=== PATIENT | male | born 1990 | race Caucasian/White ===

== ENCOUNTER 2019-03-24 18:19 | Observation (INO) | payer OTHER ==
[~2019-03-24] VITALS: Ht 180.3 cm; Wt 68.0 kg
[~2019-03-24 18:19] MED LIST: AMPDEX15CR; AZIT250 PO; BUPR150T2; CHLO5 PO; CLIN300 PO; HYDACE5325 PO; MIRT30; Norco 10-325 T1 EACH PO; PERM5TC TOP; RXANTBENOT AU; RXHYDACE PO; RXONDA4ODT MM; Sudogest30 MG PO; TRAZ50; Zofran Odt4 MG SL
[2019-03-24] MEDS ORDERED: CHLO5 (19:19)
[2019-03-24] MEDS ORDERED: HYDPAM25 (19:19)
[2019-03-24 19:27] LABS: BASOPHILS ABSOLUTE AUTO 0.04 K/mm3 (0.00-0.23); BASOPHILS PERCENT AUTO 0 % (0-2); EOSINOPHILS PERCENT AUTO 1 % (0-6); Hemoglobin 17.2 g/dL (13.5-17.5); IMMATURE GRAN ABSOLUTE AUTO 0.04 K/mm3 (0.00-0.10); IMMATURE GRAN PERCENT AUTO 0 % (0-1); LYMPHOCYTES ABSOLUTE AUTO 2.23 K/mm3 (0.84-5.20); LYMPHOCYTES PERCENT AUTO 19 % (21-46); MONOCYTES ABSOLUTE AUTO 0.97 K/mm3 (0.16-1.47); MONOCYTES PERCENT AUTO 8 % (4-13); Mean Corpuscular HGB 31.8 pg (26.0-34.0); Mean Corpuscular HGB Conc 34.4 g/dL (31.5-36.5); Mean Corpuscular Volume 92 fL (80-100); Mean Platelet Volume 10.7 fL (9.1-12.4); NEUTROPHILS ABSOLUTE AUTO 8.64 K/mm3 (1.96-9.15); NEUTROPHILS PERCENT AUTO 72 % (41-73); Platelet Count 224 K/mm3 (150-400); RDW Coefficient Variation 12.6 % (11.7-14.2); Red Blood Cell Count 5.41 M/mm3 (4.30-5.90); White Blood Cell Count 12.02 K/mm3 (4.00-11.30)
[2019-03-24 19:43] LABS: Alanine Aminotransfer (ALT/SGP 43 U/L (12-78); Albumin, Blood 4.4 g/dL (3.4-5.0); Albumin/Globulin Ratio 1.4 (0.8-1.8); Alk Phos 77 U/L (50-136); Anion Gap 7 mmol/L (6-16); Aspartate Aminotrans (AST/SGOT 27 U/L (12-37); Bilirubin, Total 0.6 mg/dL (0.1-1.0); Blood Urea Nitrogen 29 mg/dL (8-24); Bun/Creatinine Ratio 29.4 (12.0-20.0); CO2, Blood 23 mmol/L (21-32); Calcium, Blood 9.6 mg/dL (8.5-10.1); Chloride, Blood 110 mmol/L (98-108); Creatinine, Blood 0.99 mg/dL (0.60-1.20); Ethanol (Alcohol), Blood, Med <3 mg/dL; Globulin, Blood 3.1 g/dL (2.2-4.0); Glomerular Filtration Rate >60 (60-); Glucose, Blood 106 mg/dL (70-99); Salicylate 1.7 mg/dL (2.8-20.0); Sodium, Blood 140 mmol/L (136-145); Thyroxine (T4) 7.5 ug/dL (4.5-12.1); Total Protein, Blood 7.5 g/dL (6.4-8.2)
[2019-03-24 19:49] LABS: Acetaminophen, Random <2.0 ug/mL (10.0-30.0)
[2019-03-24 19:53] LABS: Source, Urine Clean Catch
[2019-03-24 19:55] LABS: Bilirubin, Urine Neg (Neg); Blood, Urine Neg (Neg); Glucose Qualitative, Urine Neg (Neg); Ketones, Urine 1+ (Neg); Leukocyte Esterase, Urine Neg (Neg); Nitrite, Urine Neg (Neg); Protein, Urine 2+ (Neg); Urobilinogen, Urine NORM (Normal)
[2019-03-24 19:56] LABS: Appearance, Urine Clear (Clear); Color, Urine Yellow (P-Yellow)
[2019-03-24 20:01] LABS: Bacteria Mod /hpf; Red Blood Cells, Urine 0-2 /hpf (0-2); Squamous Epithelial Cells Not Seen /hpf (Few); White Blood Cells, Urine 0-2 /hpf (0-5)
[2019-03-24 20:05] LABS: U Amphetamine Screen Not Detected; U Barbituate Screen Not Detected; U Benzodiazapine Screen DETECTED; U Buprenorphine Screen Not Detected; U Cannabinoids Screen DETECTED; U Cocaine Screen Not Detected; U Methadone Screen Not Detected; U Methamphetamine Screen Not Detected; U Opiates Screen Not Detected; U Oxycodone Screen Not Detected; U Phencyclidine Screen Not Detected; U Propoxyphene Screen Not Detected
== END 2019-03-25 10:45 | disposition home or self-care (01) ==
LOC: ER 18:19 → EOR 18:20
PROVIDERS: ADMIT Emergency Medicine
DX: F33.2 Major depressive disorder, recurrent severe without psychotic features (principal); F43.10 Post-traumatic stress disorder, unspecified; F41.0 Panic disorder [episodic paroxysmal anxiety]; F10.20 Alcohol dependence, uncomplicated; F17.200 Nicotine dependence, unspecified, uncomplicated; Z88.0 Allergy status to penicillin; Z88.5 Allergy status to narcotic agent
CPT/HCPCS: 36415; 80053; 81001; 84436; 84443; 85025; 87086; 99285; G0378; G0480; Q3014

== ENCOUNTER 2019-03-27 15:51 | Observation (INO) | payer OTHER ==
[~2019-03-27] VITALS: Ht 180.3 cm; Wt 68.0 kg
[~2019-03-27 15:51] MED LIST changes: +CHLO5; +HYDPAM25
[2019-03-27 19:14] LABS: BASOPHILS ABSOLUTE AUTO 0.02 K/mm3 (0.00-0.23); BASOPHILS PERCENT AUTO 0 % (0-2); EOSINOPHILS ABSOLUTE AUTO 0.01 K/mm3 (0.00-0.68); EOSINOPHILS PERCENT AUTO 0 % (0-6); Hematocrit 46.5 % (37.0-53.0); IMMATURE GRAN ABSOLUTE AUTO 0.03 K/mm3 (0.00-0.10); IMMATURE GRAN PERCENT AUTO 0 % (0-1); LYMPHOCYTES ABSOLUTE AUTO 1.94 K/mm3 (0.84-5.20); LYMPHOCYTES PERCENT AUTO 18 % (21-46); MONOCYTES ABSOLUTE AUTO 0.71 K/mm3 (0.16-1.47); MONOCYTES PERCENT AUTO 7 % (4-13); Mean Corpuscular HGB 31.9 pg (26.0-34.0); Mean Corpuscular HGB Conc 34.4 g/dL (31.5-36.5); Mean Corpuscular Volume 93 fL (80-100); Mean Platelet Volume 11.1 fL (9.1-12.4); NEUTROPHILS ABSOLUTE AUTO 8.25 K/mm3 (1.96-9.15); NEUTROPHILS PERCENT AUTO 75 % (41-73); Platelet Count 226 K/mm3 (150-400); RDW Coefficient Variation 12.4 % (11.7-14.2); RDW Standard Deviation 42.4 fL (35.1-46.3); Red Blood Cell Count 5.01 M/mm3 (4.30-5.90); White Blood Cell Count 10.96 K/mm3 (4.00-11.30)
[2019-03-27 19:29] LABS: Alanine Aminotransfer (ALT/SGP 44 U/L (12-78); Albumin, Blood 4.6 g/dL (3.4-5.0); Albumin/Globulin Ratio 1.7 (0.8-1.8); Alk Phos 64 U/L (50-136); Anion Gap 9 mmol/L (6-16); Aspartate Aminotrans (AST/SGOT 24 U/L (12-37); Bilirubin, Total 1.3 mg/dL (0.1-1.0); Blood Urea Nitrogen 15 mg/dL (8-24); Bun/Creatinine Ratio 17.8 (12.0-20.0); CO2, Blood 22 mmol/L (21-32); Calcium, Blood 9.3 mg/dL (8.5-10.1); Chloride, Blood 111 mmol/L (98-108); Creatinine, Blood 0.84 mg/dL (0.60-1.20); Ethanol (Alcohol), Blood, Med <3 mg/dL; Globulin, Blood 2.7 g/dL (2.2-4.0); Glomerular Filtration Rate >60 (60-); Glucose, Blood 90 mg/dL (70-99); Potassium, Blood 3.9 mmol/L (3.5-5.5); Salicylate <1.7 mg/dL (2.8-20.0); Sodium, Blood 142 mmol/L (136-145); Total Protein, Blood 7.3 g/dL (6.4-8.2)
[2019-03-27 19:38] LABS: Acetaminophen, Random <2.0 ug/mL (10.0-30.0)
[2019-03-27 20:54] LABS: Source, Urine Clean Catch
[2019-03-27 21:04] LABS: Bilirubin, Urine Neg (Neg); Blood, Urine Neg (Neg); Glucose Qualitative, Urine Neg (Neg); Ketones, Urine Neg (Neg); Leukocyte Esterase, Urine Neg (Neg); Nitrite, Urine Neg (Neg); Protein, Urine Neg (Neg); Specific Gravity, Urine 1.015 (1.003-1.022); Urobilinogen, Urine NORM (Normal)
[2019-03-27 21:14] LABS: U Amphetamine Screen Not Detected; U Barbituate Screen Not Detected; U Methamphetamine Screen Not Detected
[2019-03-27 21:15] LABS: Appearance, Urine Clear (Clear); Color, Urine Yellow (P-Yellow); U Benzodiazapine Screen DETECTED; U Buprenorphine Screen Not Detected; U Cannabinoids Screen DETECTED; U Cocaine Screen Not Detected; U Methadone Screen Not Detected; U Opiates Screen Not Detected; U Oxycodone Screen Not Detected; U Phencyclidine Screen Not Detected; U Propoxyphene Screen Not Detected
== END 2019-03-28 08:55 ==
LOC: ER 15:51 → EOR 15:52
PROVIDERS: ADMIT Emergency Medicine
DX: F32.9 Major depressive disorder, single episode, unspecified (principal); F10.129 Alcohol abuse with intoxication, unspecified; F17.200 Nicotine dependence, unspecified, uncomplicated; Z88.0 Allergy status to penicillin; Z88.5 Allergy status to narcotic agent; Z79.899 Other long term (current) drug therapy; Y90.0 Blood alcohol level of less than 20 mg/100 ml
CPT/HCPCS: 36415; 80053; 81003; 84443; 85025; 99285; G0378; G0480; Q0177; Q3014

== ENCOUNTER 2019-04-19 03:32 | Observation (INO) | payer OTHER ==
[~2019-04-19] VITALS: Ht 180.3 cm; Wt 68.0 kg
[2019-04-19 05:43] LABS: BASOPHILS ABSOLUTE AUTO 0.03 K/mm3 (0.00-0.23); BASOPHILS PERCENT AUTO 0 % (0-2); EOSINOPHILS PERCENT AUTO 1 % (0-6); Hematocrit 44.7 % (37.0-53.0); Hemoglobin 15.2 g/dL (13.5-17.5); IMMATURE GRAN ABSOLUTE AUTO 0.04 K/mm3 (0.00-0.10); IMMATURE GRAN PERCENT AUTO 0 % (0-1); LYMPHOCYTES ABSOLUTE AUTO 3.45 K/mm3 (0.84-5.20); LYMPHOCYTES PERCENT AUTO 29 % (21-46); MONOCYTES ABSOLUTE AUTO 1.12 K/mm3 (0.16-1.47); MONOCYTES PERCENT AUTO 9 % (4-13); Mean Corpuscular HGB 31.7 pg (26.0-34.0); Mean Corpuscular Volume 93 fL (80-100); Mean Platelet Volume 9.6 fL (9.1-12.4); NEUTROPHILS PERCENT AUTO 61 % (41-73); Platelet Count 230 K/mm3 (150-400); RDW Coefficient Variation 12.8 % (11.7-14.2); RDW Standard Deviation 43.7 fL (35.1-46.3); White Blood Cell Count 12.04 K/mm3 (4.00-11.30)
[2019-04-19 06:06] LABS: Acetaminophen, Random <2.0 ug/mL (10.0-30.0); Alanine Aminotransfer (ALT/SGP 65 U/L (12-78); Albumin, Blood 3.8 g/dL (3.4-5.0); Albumin/Globulin Ratio 1.4 (0.8-1.8); Alk Phos 69 U/L (50-136); Anion Gap 7 mmol/L (6-16); Aspartate Aminotrans (AST/SGOT 31 U/L (12-37); Bilirubin, Total 0.5 mg/dL (0.1-1.0); Blood Urea Nitrogen 11 mg/dL (8-24); Bun/Creatinine Ratio 15.5 (12.0-20.0); CO2, Blood 26 mmol/L (21-32); Calcium, Blood 8.4 mg/dL (8.5-10.1); Chloride, Blood 110 mmol/L (98-108); Creatinine, Blood 0.71 mg/dL (0.60-1.20); Ethanol (Alcohol), Blood, Med 183 mg/dL; Globulin, Blood 2.8 g/dL (2.2-4.0); Glomerular Filtration Rate >60 (60-); Glucose, Blood 88 mg/dL (70-99); Potassium, Blood 3.8 mmol/L (3.5-5.5); Salicylate 3.1 mg/dL (2.8-20.0); Sodium, Blood 143 mmol/L (136-145); Thyroxine (T4) 5.9 ug/dL (4.5-12.1); Total Protein, Blood 6.6 g/dL (6.4-8.2)
[2019-04-19 06:08] LABS: Thyroid Stimulating Hormone 0.652 uIU/mL (0.360-4.800)
[2019-04-19 07:02] LABS: Source, Urine Clean Catch
[2019-04-19 07:07] LABS: Bilirubin, Urine Neg (Neg); Blood, Urine 2+ (Neg); Glucose Qualitative, Urine Neg (Neg); Ketones, Urine Neg (Neg); Leukocyte Esterase, Urine Neg (Neg); Nitrite, Urine Neg (Neg); Protein, Urine 1+ (Neg); Urobilinogen, Urine NORM (Normal)
[2019-04-19 07:15] LABS: Appearance, Urine Clear (Clear); Bacteria Not Seen /hpf; Color, Urine Yellow (P-Yellow); Red Blood Cells, Urine 0-2 /hpf (0-2); Squamous Epithelial Cells Not Seen /hpf (Few); White Blood Cells, Urine Not Seen /hpf (0-5)
[2019-04-19 07:24] LABS: U Amphetamine Screen Not Detected; U Barbituate Screen Not Detected; U Benzodiazapine Screen DETECTED; U Buprenorphine Screen Not Detected; U Cannabinoids Screen DETECTED; U Cocaine Screen Not Detected; U Methadone Screen Not Detected; U Methamphetamine Screen Not Detected; U Opiates Screen Not Detected; U Oxycodone Screen Not Detected; U Phencyclidine Screen Not Detected; U Propoxyphene Screen Not Detected
== END 2019-04-20 23:08 ==
LOC: ER 03:32 → EOR 03:33
PROVIDERS: Emergency Medicine; ADMIT Emergency Medicine
DX: F32.9 Major depressive disorder, single episode, unspecified (principal); F34.1 Dysthymic disorder; F17.200 Nicotine dependence, unspecified, uncomplicated; F10.10 Alcohol abuse, uncomplicated; F12.10 Cannabis abuse, uncomplicated
CPT/HCPCS: 80053; 81001; 84436; 84443; 85025; 99285; G0378; G0480

== ENCOUNTER 2021-02-01 14:22 | Observation (INO) | payer OTHER ==
[~2021-02-01] VITALS: Ht 180.3 cm; Wt 71.1 kg
[2021-02-01 15:18] LABS: BASOPHILS ABSOLUTE AUTO 0.02 K/mm3 (0.00-0.23); BASOPHILS PERCENT AUTO 0 % (0-2); EOSINOPHILS ABSOLUTE AUTO 0.01 K/mm3 (0.00-0.68); EOSINOPHILS PERCENT AUTO 0 % (0-6); Hematocrit 45.5 % (37.0-53.0); Hemoglobin 16.4 g/dL (13.5-17.5); IMMATURE GRAN ABSOLUTE AUTO 0.03 K/mm3 (0.00-0.10); IMMATURE GRAN PERCENT AUTO 1 % (0-1); LYMPHOCYTES ABSOLUTE AUTO 1.08 K/mm3 (0.84-5.20); LYMPHOCYTES PERCENT AUTO 17 % (21-46); MONOCYTES ABSOLUTE AUTO 0.54 K/mm3 (0.16-1.47); MONOCYTES PERCENT AUTO 9 % (4-13); Mean Corpuscular Volume 92 fL (80-100); Mean Platelet Volume 10.3 fL (9.1-12.4); NEUTROPHILS ABSOLUTE AUTO 4.51 K/mm3 (1.96-9.15); NEUTROPHILS PERCENT AUTO 73 % (41-73); Platelet Count 186 K/mm3 (150-400); RDW Coefficient Variation 11.8 % (11.7-14.2); RDW Standard Deviation 39.4 fL (35.1-46.3); Red Blood Cell Count 4.97 M/mm3 (4.30-5.90); White Blood Cell Count 6.19 K/mm3 (4.00-11.30)
[2021-02-01 15:31] LABS: Alanine Aminotransfer (ALT/SGP 76 U/L (12-78); Albumin, Blood 4.1 g/dL (3.4-5.0); Albumin/Globulin Ratio 1.3 (0.8-1.8); Alk Phos 72 U/L (50-136); Anion Gap 4 mmol/L (6-16); Aspartate Aminotrans (AST/SGOT 51 U/L (12-37); Bilirubin, Total 1.1 mg/dL (0.1-1.0); Blood Urea Nitrogen 5 mg/dL (8-24); Bun/Creatinine Ratio 6.1 (12.0-20.0); CO2, Blood 28 mmol/L (21-32); Chloride, Blood 105 mmol/L (98-108); Creatinine, Blood 0.82 mg/dL (0.60-1.20); Ethanol (Alcohol), Blood, Med <3 mg/dL; Globulin, Blood 3.1 g/dL (2.2-4.0); Glomerular Filtration Rate >60 (60-); Glucose, Blood 106 mg/dL (70-99); Potassium, Blood 3.5 mmol/L (3.5-5.5); Salicylate 2.5 mg/dL (2.8-20.0); Sodium, Blood 137 mmol/L (136-145); Total Protein, Blood 7.2 g/dL (6.4-8.2)
[2021-02-01 15:35] LABS: Source, Urine Voided
[2021-02-01 15:36] LABS: Acetaminophen, Random <2.0 ug/mL (10.0-30.0)
[2021-02-01 15:42] LABS: Appearance, Urine Clear (Clear); Bilirubin, Urine Neg (Neg); Blood, Urine Neg (Neg); Color, Urine Yellow (P-Yellow); Glucose Qualitative, Urine Neg (Neg); Ketones, Urine 1+ (Neg); Leukocyte Esterase, Urine 1+ (Neg); Nitrite, Urine Neg (Neg); Protein, Urine 3+ (Neg); Specific Gravity, Urine 1.015 (1.003-1.022); Urobilinogen, Urine NORM (Normal)
[2021-02-01 15:50] LABS: Mucus Light (0-Heavy)
[2021-02-01 15:51] LABS: Bacteria Few /hpf; Red Blood Cells, Urine 0-2 /hpf (0-2); Squamous Epithelial Cells Rare /hpf (Few); White Blood Cells, Urine 0-2 /hpf (0-5)
[2021-02-01 15:57] LABS: U Amphetamine Screen Not Detected; U Barbituate Screen Not Detected; U Benzodiazapine Screen Not Detected; U Buprenorphine Screen Not Detected; U Cannabinoids Screen DETECTED; U Cocaine Screen Not Detected; U Methadone Screen Not Detected; U Methamphetamine Screen Not Detected; U Opiates Screen Not Detected; U Oxycodone Screen Not Detected; U Phencyclidine Screen Not Detected; U Propoxyphene Screen Not Detected
[2021-02-02 17:15] LABS: SARS-Cov-2 (COVID-19) PCR, MMC POSITIVE (NEGATIVE)
--- NOTE | 2021-02-02 20:40 | NUR ---
REPORT RECEIVED FROM СВЕТЛАНА MARIA RN. PT TRANSPORTED TO MEDICAL FLOOR VIA W/C, AMBULATED TO BED. ALL BELONGINGS PLACED IN LOCKED CLOSET IN PT ROOM. IN NAD. ANSWERS QUESTIONS APPROPRIATELY. ENVIRONMENT FREE FROM HARMFUL OBJECTS. BED IN LOW AND LOCKED POSITION, PT ON MODERATE SI RISK, ON REMOTE CAMERA MONITORING.
--- NOTE | 2021-02-02 22:30 | NUR ---
PT CONTINUES TO BE MODERATE SI. DR. SANCHEZ TO RE-EVALUATE 02/03/21 IN THE AM.
--- NOTE | 2021-02-03 04:06 | NUR ---
HAND TOUCH UP PAINTER SUMMARY PT ASLEEP, IN NAD. NO ACUTE CHANGES IN CONDITION NOTED SINCE ARRIVAL TO MEDICAL FLOOR. REMAINS AT MODERATE SI RISK WITH REMOTE CAMERA MONITORING. CIWA'S STABLE. NO ACUTE NEEDS ASSESSED AT THIS TIME. SHORT CORD CALL LIGHT IN REACH, BED IN LOW POSITION. ENVIRONMENT FREE FROM HARMFUL OBJECTS. WILL CONTINUE TO PROVIDE CARE NEEDED UNTIL REPORT GIVEN TO ONCOMING RN.
[2021-02-03 05:29] LABS: BASOPHILS ABSOLUTE AUTO 0.04 K/mm3 (0.00-0.23); BASOPHILS PERCENT AUTO 1 % (0-2); EOSINOPHILS ABSOLUTE AUTO 0.25 K/mm3 (0.00-0.68); EOSINOPHILS PERCENT AUTO 3 % (0-6); Hematocrit 50.7 % (37.0-53.0); Hemoglobin 17.2 g/dL (13.5-17.5); IMMATURE GRAN ABSOLUTE AUTO 0.02 K/mm3 (0.00-0.10); IMMATURE GRAN PERCENT AUTO 0 % (0-1); LYMPHOCYTES ABSOLUTE AUTO 2.61 K/mm3 (0.84-5.20); LYMPHOCYTES PERCENT AUTO 32 % (21-46); MONOCYTES ABSOLUTE AUTO 0.61 K/mm3 (0.16-1.47); MONOCYTES PERCENT AUTO 8 % (4-13); Mean Corpuscular HGB 31.9 pg (26.0-34.0); Mean Corpuscular HGB Conc 33.9 g/dL (31.5-36.5); Mean Corpuscular Volume 94 fL (80-100); Mean Platelet Volume 10.5 fL (9.1-12.4); NEUTROPHILS ABSOLUTE AUTO 4.57 K/mm3 (1.96-9.15); NEUTROPHILS PERCENT AUTO 57 % (41-73); Platelet Count 179 K/mm3 (150-400); RDW Coefficient Variation 12.1 % (11.7-14.2); RDW Standard Deviation 41.7 fL (35.1-46.3); Red Blood Cell Count 5.39 M/mm3 (4.30-5.90)
[2021-02-03 06:07] LABS: Alanine Aminotransfer (ALT/SGP 90 U/L (12-78); Albumin, Blood 3.6 g/dL (3.4-5.0); Albumin/Globulin Ratio 1.2 (0.8-1.8); Alk Phos 68 U/L (50-136); Anion Gap 4 mmol/L (6-16); Aspartate Aminotrans (AST/SGOT 49 U/L (12-37); Bilirubin, Total 0.7 mg/dL (0.1-1.0); Blood Urea Nitrogen 14 mg/dL (8-24); Bun/Creatinine Ratio 18.2 (12.0-20.0); C-REACTIVE PROTEIN, EXT RANGE <0.290 mg/dL (0.000-0.300); CO2, Blood 26 mmol/L (21-32); Calcium, Blood 8.8 mg/dL (8.5-10.1); Chloride, Blood 110 mmol/L (98-108); Creatinine, Blood 0.77 mg/dL (0.60-1.20); Globulin, Blood 3.1 g/dL (2.2-4.0); Glomerular Filtration Rate >60 (60-); Glucose, Blood 87 mg/dL (70-99); Potassium, Blood 3.9 mmol/L (3.5-5.5); Sodium, Blood 140 mmol/L (136-145); Total Protein, Blood 6.7 g/dL (6.4-8.2)
--- NOTE | 2021-02-03 18:23 | NUR ---
SHIFT SUMMARY PT NOW A LOW RISK MONITOR FOR SI. MEDICATED FOR HEADACHE AND NAUSEA X1 THIS SHIFT. PT HAS HAD A GOOD APPETITE. ON ROOM AIR. NO COMPLAINTS OF SHORTNESS OF BREATH. PT INDEPENDENT IN ROOM. NO ACUTE CHANGES AT THIS TIME. CALL LIGHT IN REACH. WILL CONTINUE TO MONITOR AND REPORT TO ONCOMING RN.
--- NOTE | 2021-02-04 05:08 | NUR ---
SHIFT SUMMARY ASSUMED CARE OF PT AT 1900. PT IS A/OX4. INDEPENDENT IN ROOM. PT STATES HE HAS NO SUCIDAL THOUGHTS AND HE WAS JUST HAVING A BAD DAY AT THE TIME. LUNG SOUNDS HAVE CRACKLES T/O. PT C/O HEADACHE AND NEASEA, WITH LITTLE RELEIF FROM TYLENOL AND ZOFRAN. PT SLEPT T/O THE NIGHT. CIWAH SCORE WAS A 2. CALL LIGHT IN REACH, BED IN LOWEST POSTION.
--- NOTE | 2021-02-04 18:08 | NUR ---
SHIFT SUMMARY MEDICATED FOR HEADACHE AND NAUSEA X1 PER EMAR THIS SHIFT. PT HAS HAD NO FURTHER COMPLAINTS. PT HAS GOOD APPETITE. PT ON ROOM AIR. NO ACUTE CHANGES THIS SHIFT. CALL LIGHT IN REACH. WILL CONTINUE TO MONITOR.
--- NOTE | 2021-02-05 05:03 | NUR ---
SHIFT SUMMARY NO ACUTE CHANGES TO REPORT THIS SHIFT, PT HAS RESTED MOST OF THE NIGHT. MEDICATED FOR PAIN AND NAUSEA X1 THIS SHIFT. RESP ARE E/U ON RA, NONPRODUCTIVE COUGH. CIWA'S BELOW 8. PT A/OX4. INDEPEDNENT IN THE ROOM, MAKES NEEDS KNOWN. PT AWAITING IN PT PSYCH PLACEMENT AT THIS TIME. BED IN LOWEST POSITION, CALL LIGHT WITHIN REACH.
[2021-02-05 05:33] LABS: Albumin, Blood 3.6 g/dL (3.4-5.0); Albumin/Globulin Ratio 1.2 (0.8-1.8); Bilirubin, Direct 0.1 mg/dL (0.0-0.3); Bilirubin, Indirect 0.3 mg/dL (0.1-0.7); Bilirubin, Total 0.4 mg/dL (0.1-1.0); Globulin, Blood 3.1 g/dL (2.2-4.0); Total Protein, Blood 6.7 g/dL (6.4-8.2)
--- NOTE | 2021-02-05 18:16 | NUR ---
PT HAS BEEN VERY PLEASANT TODAY. DID C/O HEADACHE TODAY. TYLENOL DID RESOLVE. SOME ANXIETY. COVERED TO PT SATISFACTION WITH AVAIL MEDS. PT INDEPENDANT IN ROOM. DENIES ALL ETOH S/S . STATES SOME ANXIETY IS ALL. STATES 6-8 DAYS SINCE LAST DRINK. NO NEW CONCERNS NOTED. PT INDEPENDANT IN ROOM. BED IN LOW POSITION, CALL LITE IN REACH. CALLS APPRP
--- NOTE | 2021-02-06 05:03 | NUR ---
SHIFT SUMMARY: 30 Y/O MALE RESTED COMFORTABLE ALL SHIFT; DENIES PAIN OR NAUSEA; HAPPY AND COOPERATIVE; BED LOW POSITION WITH CALL LIGHT AT SIDE.
--- NOTE | 2021-02-06 18:20 | NUR ---
SHIFT SUMMARY. A&OX4, INDEPENDENT IN ROOM, PLEASANT AND COOPERATIVE WITH CARE. PT MEDICATED TWICE THIS SHIFT FOR ANXIETY. PT C/O H/A ONCE THIS SHIFT, MANAGED WELL WITH APAP. NO OTHER CHANGES OR CONCERNS.
--- NOTE | 2021-02-07 05:51 | NUR ---
SHIFT SUMMARY A/OX4, IND IN THE ROOM. DENIES PAIN OR SOB. VSS, NO ACUTE CHANGES AT THIS TIME. BED IN LOWEST POSITION WITH CALL LIGHT IN REACH.
--- NOTE | 2021-02-07 18:01 | NUR ---
SHIFT SUMMARY. A&OX4, INDEPENDENT IN ROOM, PLEASANT AND COOPERATIVE WITH CARE. PT REPORTED ANXIETY AND H/A TWICE THIS SHIFT, SYMPTOMS MANAGED WELL WITH CURRENT ORDERS. PT REPORTED THAT HE WANTED TO TRY NICOTINE GUM INSTEAD OF PATCH, HE REPORTS THAT HE SMOKES 4 PACKS OF CIGARETTES PER DAY, DR. OSBORNE NOTIFIED AND ORDERS RECIEVED. NO OTHER CHANGES OR CONCERNS.
--- NOTE | 2021-02-08 04:08 | NUR ---
SHIFT SUMMARY A/OX4, IND IN ROOM. PLEASANT AND COOPERATIVE WITH CARE. PRN ATARAX GIVEN FOR ANXIETY. DENIES PAIN OR SOB. VSS, NO ACUTE CHANGES AT THIS TIME. BED IN LOWEST POSITION WITH CALL LIGHT IN REACH. WILL CONTINUE TO MONITOR AND REPORT TO ONCOMING RN.
--- NOTE | 2021-02-08 18:02 | NUR ---
SHIFT SUMMARY- PT IS A/O, PLESANT AND COOPERATVIE. HE IS EATING AND DRINKING WELL. HE TOOK A SHOWER THIS SHIFT. HE SPOKE WITH DR. MARTINES THIS SHIFT. 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 BED IS IN THE LOW POSITION AND CALL LIGHT IS WITHIN REACH.
--- NOTE | 2021-02-09 06:08 | NUR ---
SHIFT SUMMARY A/OX4, IND IN ROOM. APPEARED TO SLEEP T/O THE NIGHT. DENIES PAIN OR SOB. VSS, NO ACUTE CHANGES AT THIS TIME. BED IN LOWEST POSITION WITH CALL LIGHT IN REACH. WILL CONTINUE TO MONITOR AND REPORT TO ONCOMING RN.
--- NOTE | 2021-02-09 18:27 | NUR ---
SHIFT SUMMARY- PT IS A/O, PLESANT AND COOPERATVIE. HE IS EATING AND DRINKING WELL. HE IS INDEPENDENT IN THE ROOM. HE IS RECIEVING PRN PAIN AND ANXIETY MEDICATIONS.
--- NOTE | 2021-02-10 00:39 | NUR ---
REPORT RECIEVED FROM SHAHIDA VAUGHAN AND PT T/F TO ROOM 343 AT 0035. PT A/OX4 DENIES NEEDS AND WAS ORIENTED TO NEW ROOM AND CALL SYSTEM. HE DENIES COMPLAINTS OR CONCERNS. THIS RN AGREES TO SHAHIDA'S SHIFT ASSESSMENT. PT AWARE TO CALL FOR ASSIST PRN.
--- NOTE | 2021-02-10 03:54 | NUR ---
SUMMARY: PT IS A/OX4, PLEASANT AND COOPERATIVE W/CARE AND INDEPENDENT IN ROOM. HE RECIEVED TYLENOL FROM FOR TOLERABLE RELIEF OF EDMONDS AND HAS DENIED PAIN AND ALL OTHER COMPLAINTS SINCE. PT SLEPT MAJORITY OF NOCTE W/CALL LIGHT IN REACH AND BED IN LOW POSITION. NO ACUTE CHANGES, VSS/AFEBRILE. WCTM AND REPORT TO DAY RN.
[2021-02-10 05:57] LABS: Hematocrit 46.7 % (37.0-53.0); Hemoglobin 15.9 g/dL (13.5-17.5); Mean Corpuscular Volume 94 fL (80-100); Mean Platelet Volume 10.6 fL (9.1-12.4); Platelet Count 198 K/mm3 (150-400); RDW Standard Deviation 41.5 fL (35.1-46.3); Red Blood Cell Count 4.97 M/mm3 (4.30-5.90); White Blood Cell Count 7.91 K/mm3 (4.00-11.30)
[2021-02-10 06:34] LABS: Alanine Aminotransfer (ALT/SGP 127 U/L (12-78); Albumin, Blood 3.6 g/dL (3.4-5.0); Albumin/Globulin Ratio 1.3 (0.8-1.8); Alk Phos 70 U/L (50-136); Anion Gap 5 mmol/L (6-16); Aspartate Aminotrans (AST/SGOT 28 U/L (12-37); Bilirubin, Total 0.3 mg/dL (0.1-1.0); Blood Urea Nitrogen 19 mg/dL (8-24); Bun/Creatinine Ratio 20.9 (12.0-20.0); CO2, Blood 25 mmol/L (21-32); Calcium, Blood 8.4 mg/dL (8.5-10.1); Chloride, Blood 113 mmol/L (98-108); Creatinine, Blood 0.91 mg/dL (0.60-1.20); Globulin, Blood 2.8 g/dL (2.2-4.0); Glomerular Filtration Rate >60 (60-); Glucose, Blood 96 mg/dL (70-99); Potassium, Blood 4.4 mmol/L (3.5-5.5); Sodium, Blood 143 mmol/L (136-145); Total Protein, Blood 6.4 g/dL (6.4-8.2)
--- NOTE | 2021-02-10 14:24 | NUR ---
SUMMARY/DISCHARGE PT LEFT AMA, THIS RN WENT IN THE ROOM TO GIVE AFTERNOON DOSE OF GABAPENTIN, PT STATES HE IS LEAVING, PROS AND CONS OF LEAVING VS STAYING DISCUSSED WITH THE PT, HE DENIES ANY SUICIDAL IDEATION, STATES HE DOES NOT WANT ANY INPATIENT TREATMENT AT THIS TIME, STATES HE HAS A SAFE PLACE TO GO, PT ABLE TO AMBULATE SAFELY TO THE ELEVATORS WEARING HIS MASK INDEPENDENTLY, DR OSBORNE NOTIFIED
== END 2021-02-10 15:30 | disposition left against medical advice (07) ==
LOC: ER 14:22 → EOR 14:23 → MEDS 14:23 → EOR 14:23 → MEDS 02-02 20:33
PROVIDERS: Internal Medicine; ADMIT Emergency Medicine
DX: F32.9 Major depressive disorder, single episode, unspecified (principal); U07.1 COVID-19; F10.10 Alcohol abuse, uncomplicated; F17.200 Nicotine dependence, unspecified, uncomplicated; Z88.0 Allergy status to penicillin; Z53.29 Procedure and treatment not carried out because of patient's decision for other reasons
CPT/HCPCS: 36415; 71045; 80053; 80076; 81001; 84443; 85025; 85027; 85379; 85651; 86140; 87086; 99285; A9270; G0378; G0480; J1650; Q3014; U0004

== ENCOUNTER 2021-07-20 10:59 | Observation (INO) | payer OTHER ==
[~2021-07-20] VITALS: Ht 177.8 cm; Wt 70.3 kg
[2021-07-20 11:51] LABS: BASOPHILS ABSOLUTE AUTO 0.05 K/mm3 (0.00-0.23); BASOPHILS PERCENT AUTO 0 % (0-2); EOSINOPHILS ABSOLUTE AUTO 0.06 K/mm3 (0.00-0.68); EOSINOPHILS PERCENT AUTO 1 % (0-6); Hemoglobin 17.7 g/dL (13.5-17.5); IMMATURE GRAN ABSOLUTE AUTO 0.04 K/mm3 (0.00-0.10); IMMATURE GRAN PERCENT AUTO 0 % (0-1); LYMPHOCYTES ABSOLUTE AUTO 1.79 K/mm3 (0.84-5.20); LYMPHOCYTES PERCENT AUTO 15 % (21-46); MONOCYTES PERCENT AUTO 7 % (4-13); Mean Corpuscular HGB 31.6 pg (26.0-34.0); Mean Corpuscular HGB Conc 34.7 g/dL (31.5-36.5); Mean Corpuscular Volume 91 fL (80-100); Mean Platelet Volume 9.9 fL (9.1-12.4); NEUTROPHILS ABSOLUTE AUTO 9.53 K/mm3 (1.96-9.15); NEUTROPHILS PERCENT AUTO 77 % (41-73); Platelet Count 335 K/mm3 (150-400); RDW Coefficient Variation 11.9 % (11.7-14.2); RDW Standard Deviation 39.6 fL (35.1-46.3); White Blood Cell Count 12.37 K/mm3 (4.00-11.30)
[2021-07-20 12:17] LABS: Acetaminophen, Random <2.0 ug/mL (10.0-30.0); Alanine Aminotransfer (ALT/SGP 62 U/L (12-78); Albumin, Blood 3.8 g/dL (3.4-5.0); Albumin/Globulin Ratio 1.3 (0.8-1.8); Alk Phos 70 U/L (50-136); Anion Gap 11 mmol/L (6-16); Aspartate Aminotrans (AST/SGOT 25 U/L (12-37); Bilirubin, Total 1.2 mg/dL (0.1-1.0); Blood Urea Nitrogen 21 mg/dL (8-24); CO2, Blood 26 mmol/L (21-32); Calcium, Blood 9.1 mg/dL (8.5-10.1); Chloride, Blood 103 mmol/L (98-108); Ethanol (Alcohol), Blood, Med <3 mg/dL; Glomerular Filtration Rate 60 (60-); Glucose, Blood 98 mg/dL (70-99); Salicylate <1.7 mg/dL (2.8-20.0); Sodium, Blood 140 mmol/L (136-145); Total Protein, Blood 6.8 g/dL (6.4-8.2)
[2021-07-20 12:17] LABS: Source, Urine Clean Catch
[2021-07-20 12:31] LABS: U Methamphetamine Screen DETECTED
[2021-07-20 12:32] LABS: U Amphetamine Screen DETECTED; U Barbituate Screen Not Detected; U Benzodiazapine Screen Not Detected; U Buprenorphine Screen Not Detected; U Cannabinoids Screen DETECTED; U Cocaine Screen Not Detected; U Methadone Screen Not Detected; U Opiates Screen Not Detected; U Oxycodone Screen Not Detected; U Phencyclidine Screen Not Detected; U Propoxyphene Screen Not Detected
[2021-07-20 12:41] LABS: Influenza A, PCR NEGATIVE (NEGATIVE); Influenza B, PCR NEGATIVE (NEGATIVE); Resp Syncytial Virus, PCR NEGATIVE (NEGATIVE); SARS-Cov-2 (COVID-19) PCR, MMC NEGATIVE (NEGATIVE)
[2021-07-20 13:00] LABS: Appearance, Urine Clear (Clear); Bilirubin, Urine Neg (Neg); Blood, Urine Neg (Neg); Color, Urine Yellow (P-Yellow); Glucose Qualitative, Urine Neg (Neg); Ketones, Urine 3+ (Neg); Leukocyte Esterase, Urine Neg (Neg); Nitrite, Urine Neg (Neg); Protein, Urine 2+ (Neg); Specific Gravity, Urine 1.025 (1.003-1.022); Urobilinogen, Urine 1+ (Normal)
[2021-07-20 13:14] LABS: White Blood Cells, Urine 0-2 /hpf (0-5)
[2021-07-20 13:15] LABS: Bacteria Few /hpf; Hyaline Casts 0-2 /lpf (0-2); Mucus Heavy (0-Heavy); Red Blood Cells, Urine Not Seen /hpf (0-2); Squamous Epithelial Cells Rare /hpf (Few)
== END 2021-07-23 15:12 | disposition home or self-care (01) ==
LOC: ER 10:59 → EOR 11:00
PROVIDERS: Physician Assistant; ADMIT Emergency Medicine
DX: F33.3 Major depressive disorder, recurrent, severe with psychotic symptoms (principal); F17.210 Nicotine dependence, cigarettes, uncomplicated; F12.10 Cannabis abuse, uncomplicated; F15.10 Other stimulant abuse, uncomplicated; F10.10 Alcohol abuse, uncomplicated; Z20.822 Contact with and (suspected) exposure to COVID-19; Z88.0 Allergy status to penicillin; Z59.00 Homelessness unspecified
CPT/HCPCS: 0241U; 36415; 80053; 81001; 85025; 87086; 99285; A9270; G0378; G0480; Q3014

== ENCOUNTER 2022-07-01 11:08 | Observation (INO) | payer OTHER ==
[~2022-07-01] VITALS: Ht 180.3 cm; Wt 76.0 kg
[2022-07-01 11:57] LABS: BASOPHILS ABSOLUTE AUTO 0.03 K/mm3 (0.00-0.23); BASOPHILS PERCENT AUTO 0 % (0-2); EOSINOPHILS ABSOLUTE AUTO 0.05 K/mm3 (0.00-0.68); EOSINOPHILS PERCENT AUTO 0 % (0-6); Hematocrit 47.9 % (37.0-53.0); Hemoglobin 17.3 g/dL (13.5-17.5); IMMATURE GRAN ABSOLUTE AUTO 0.04 K/mm3 (0.00-0.10); IMMATURE GRAN PERCENT AUTO 0 % (0-1); LYMPHOCYTES ABSOLUTE AUTO 2.49 K/mm3 (0.84-5.20); LYMPHOCYTES PERCENT AUTO 17 % (21-46); MONOCYTES ABSOLUTE AUTO 1.29 K/mm3 (0.16-1.47); MONOCYTES PERCENT AUTO 9 % (4-13); Mean Corpuscular HGB 31.6 pg (26.0-34.0); Mean Corpuscular HGB Conc 36.1 g/dL (31.5-36.5); Mean Corpuscular Volume 87 fL (80-100); Mean Platelet Volume 9.7 fL (9.1-12.4); NEUTROPHILS PERCENT AUTO 73 % (41-73); Platelet Count 254 K/mm3 (150-400); RDW Coefficient Variation 11.5 % (11.7-14.2); RDW Standard Deviation 37.2 fL (35.1-46.3); Red Blood Cell Count 5.48 M/mm3 (4.30-5.90)
[2022-07-01 12:26] LABS: Ethanol (Alcohol), Blood, Med 7 mg/dL; Salicylate <1.7 mg/dL (2.8-20.0)
[2022-07-01 12:36] LABS: Acetaminophen, Random <2.0 ug/mL (10.0-30.0); Alanine Aminotransfer (ALT/SGP 42 U/L (12-78); Albumin, Blood 4.4 g/dL (3.4-5.0); Albumin/Globulin Ratio 1.5 (0.8-1.8); Alk Phos 62 U/L (50-136); Anion Gap 11 mmol/L (6-16); Aspartate Aminotrans (AST/SGOT 58 U/L (12-37); Blood Urea Nitrogen 12 mg/dL (8-24); Bun/Creatinine Ratio 18.8 (12.0-20.0); CO2, Blood 22 mmol/L (21-32); Calcium, Blood 10.1 mg/dL (8.5-10.1); Chloride, Blood 101 mmol/L (98-108); Creatinine, Blood 0.64 mg/dL (0.60-1.20); Glomerular Filtration Rate 131 (60-); Glucose, Blood 114 mg/dL (70-99); Potassium, Blood 3.3 mmol/L (3.5-5.5); Sodium, Blood 134 mmol/L (136-145); Total Protein, Blood 7.4 g/dL (6.4-8.2)
[2022-07-01 13:18] LABS: Source, Urine Clean Catch
[2022-07-01 13:26] LABS: Appearance, Urine Clear (Clear); Bilirubin, Urine Neg (Neg); Blood, Urine Neg (Neg); Color, Urine Yellow (P-Yellow); Glucose Qualitative, Urine Neg (Neg); Ketones, Urine 2+ (Neg); Leukocyte Esterase, Urine Neg (Neg); Nitrite, Urine Neg (Neg); Protein, Urine 2+ (Neg); Specific Gravity, Urine 1.015 (1.003-1.022); Urobilinogen, Urine NORM (Normal); pH, Urine 6.5 (5.0-8.0)
[2022-07-01 13:44] LABS: Bacteria Few /hpf; Hyaline Casts 0-2 /lpf (0-2); Red Blood Cells, Urine 0-2 /hpf (0-2); Squamous Epithelial Cells Rare /hpf (Few); White Blood Cells, Urine 0-2 /hpf (0-5)
[2022-07-01 13:49] LABS: U Amphetamine Screen DETECTED; U Barbituate Screen Not Detected; U Benzodiazapine Screen Not Detected; U Buprenorphine Screen Not Detected; U Cannabinoids Screen DETECTED; U Cocaine Screen Not Detected; U Methadone Screen Not Detected; U Methamphetamine Screen DETECTED; U Opiates Screen Not Detected; U Oxycodone Screen Not Detected; U Phencyclidine Screen Not Detected; U Propoxyphene Screen Not Detected
[2022-07-01 13:59] LABS: Influenza A, PCR NEGATIVE (NEGATIVE); Influenza B, PCR NEGATIVE (NEGATIVE); Resp Syncytial Virus, PCR NEGATIVE (NEGATIVE); SARS-Cov-2 (COVID-19) PCR, MMC NEGATIVE (NEGATIVE)
--- NOTE | 2022-07-02 23:10 | NUR ---
CARE ASSUMPTION: PATIENT ARRIVES BY GURNEY AND ASSISTS STAFF IN SLIDING SELF TO PCU BED. FLUIDS INFUSING PER EMAR. ADMISSION HX AND ASSESSMENT COMPLETE. VS WNL, DENIES CHEST PAIN/SOB, ENDORSES LLQ PAIN THAT "MAY BE HUNGER RELATED." STATES LAST ATE "30 MIN OR AN HOUR AGO." PATIENT FLUSHED AND FIDGETS BUT APPROPRIATE AND COOPERATIVE WITH CARE. PATIENT ASLEEP AND BED LOW WITH CALL LIGHT IN REACH. SITTER IN ROOM FOR HIGH SI RISK.
[2022-07-03 03:52] LABS: BASOPHILS ABSOLUTE AUTO 0.03 K/mm3 (0.00-0.23); BASOPHILS PERCENT AUTO 0 % (0-2); EOSINOPHILS ABSOLUTE AUTO 0.16 K/mm3 (0.00-0.68); EOSINOPHILS PERCENT AUTO 2 % (0-6); Hematocrit 42.8 % (37.0-53.0); Hemoglobin 14.6 g/dL (13.5-17.5); IMMATURE GRAN ABSOLUTE AUTO 0.02 K/mm3 (0.00-0.10); IMMATURE GRAN PERCENT AUTO 0 % (0-1); LYMPHOCYTES ABSOLUTE AUTO 2.54 K/mm3 (0.84-5.20); LYMPHOCYTES PERCENT AUTO 28 % (21-46); MONOCYTES ABSOLUTE AUTO 0.78 K/mm3 (0.16-1.47); MONOCYTES PERCENT AUTO 9 % (4-13); Mean Corpuscular HGB 31.9 pg (26.0-34.0); Mean Corpuscular HGB Conc 34.1 g/dL (31.5-36.5); Mean Platelet Volume 10.1 fL (9.1-12.4); NEUTROPHILS ABSOLUTE AUTO 5.65 K/mm3 (1.96-9.15); NEUTROPHILS PERCENT AUTO 62 % (41-73); Platelet Count 193 K/mm3 (150-400); RDW Coefficient Variation 11.9 % (11.7-14.2); RDW Standard Deviation 41.1 fL (35.1-46.3); Red Blood Cell Count 4.58 M/mm3 (4.30-5.90); White Blood Cell Count 9.18 K/mm3 (4.00-11.30)
[2022-07-03 03:54] LABS: Mean Corpuscular Volume 93 fL (80-100)
[2022-07-03 04:27] LABS: Bilirubin, Total 0.6 mg/dL (0.1-1.0); Bun/Creatinine Ratio 16.1 (12.0-20.0); Calcium, Blood 8.2 mg/dL (8.5-10.1); Creatinine, Blood 0.87 mg/dL (0.60-1.20); Globulin, Blood 2.4 g/dL (2.2-4.0); Potassium, Blood 4.2 mmol/L (3.5-5.5)
[2022-07-03 04:28] LABS: Albumin/Globulin Ratio 1.3 (0.8-1.8); Total Protein, Blood 5.4 g/dL (6.4-8.2)
--- NOTE | 2022-07-03 05:43 | NUR ---
SHIFT SUMMARY: PATIENT PLEASANT AND COOPERATIVE WITH CARE, VS MILDLY HYPOTENSIVE, CIWA 12. MEDICATED PER EMAR FOR NAUSEA AND W/D. SITTER IN ROOM. FLUIDS INFUSING. BED LOW WITH CALL LIGHT IN PLACE.
--- NOTE | 2022-07-03 08:04 | NUR ---
ASSUMED PT CARE AT 0715 PT LYING IN BED. AWAKE, RESPONDS APPROPRIATELY TO QUESTIONS. DENIES SI AT THIS TIME. SITTER AT BEDSIDE. PT IS NOT CURRENTLY ON TELEMETRY. INDEPENDENT WITH ADL'S. CALLED DR. YOUNG REGARDING DIET ORDER. PT DENIES ANY N/V, C/O 6/10 HEADACHE PAIN, SLIGHT TREMOR FELT. PT DENIES ANY HALLUCINATIONS AT THIS TIME, BUT DOES STATE HE HAS HAD THEM IN THE PAST WHEN HE HAS WITHDRAWN FROM ALCOHOL; WILL CONTINUE TO MEDICATE WITH LIBRIUM PER ORDERS AND CIWA SCALE. CALL LIGHT WITHIN REACH AND PT IS ABLE TO MAKE HIS NEEDS KNOWN.
--- NOTE | 2022-07-03 16:19 | NUR ---
END OF SHIFT SUMMARY PT HAS REMAINED PLEASANT AND COOPERATIVE WITH CARES THIS SHIFT. UP IN ROOM TO VOID. NO ACTIVE THOUGHTS OF HARM OR SUICIDE AT THIS TIME; HOWEVER, PT REMAINS HIGH RISK UNTIL ASSESSED BY DR. SANCHEZ. SALINE LOCKED AT THIS TIME. CIWA'S HAVE BEEN AROUND 9 TODAY AND PT HAS BEEN MEDICATED WITH BOTH ATIVAN AND LIBRIUM PER ORDERS, WHICH APPEAR EFFECTIVE. WILL CONTINUE TO MONITOR UNTIL REPORT IS HANDED OFF TO ONCOMING RN.
--- NOTE | 2022-07-03 21:23 | NUR ---
CARE ASSUMPTION: ASSUMED CARE AT 1915. PATIENT IN BED WITH 1:1 SITTER AT BEDSIDE. DENIES SI. ENDORSES 7/10 HEADACHE AND NAUSEA W/O VOMITING. CIWA 15. MEDICATED PER EMAR. BED LOW WITH CALL LIGHT IN PLACE.
[2022-07-04 04:55] LABS: Bun/Creatinine Ratio 21.8 (12.0-20.0); Calcium, Blood 8.6 mg/dL (8.5-10.1); Creatinine, Blood 0.87 mg/dL (0.60-1.20); Potassium, Blood 4.1 mmol/L (3.5-5.5)
--- NOTE | 2022-07-04 08:45 | NUR ---
ASSUMED CARE: REPORT RECEIVED FROM HERNÁN ANGEL. ASSUMED CARE OF THIS PT AT APPROX 0700. ON ASSESSMENT, THE PT IS AWAKE & EATING. HE STS HAVING MILD NAUSEA & FEELING ANXIOUS. CIWA 13, MEDS PER EMAR AT THAT TIME. 1:1 SITTER AT BEDSIDE FOR SI PRECAUTIONS. LS CLEAR T/O, PT ON RA W/ O2 SATS > 95%. DENIES SOB. NO TELE MONITOR IN USE, MEDICAL STATUS. VSS. TOLERATING PO INTAKE WELL. VOIDS URINE W/O DIFFICUTLY USING URINAL. SKIN CONDITION OVERALL INTACT, PT REPOSITIONS SELF W/O DIFFICULTY. WILL CONTINUE TO MONITOR & UPDATE NEEDED.
--- NOTE | 2022-07-04 18:20 | NUR ---
UPDATE / SHIFT SUMMARY: WE HAVE BEEN NOTIFIED BY [facility] THAT THEY HAVE BED AVAILABILITY FOR THIS PT IN INPATIENT PSYCH. PAPERWORK HAS BEEN COMPLETED & SECURE TRANSPORT HAS BEEN ARRANGED FOR 1000 TOMORROW AM. THE PT HAS BECOME INCREASINGLY ANXIOUS AT THE NEWS OF TRANSPORT & IS REQUESTING HIS BELONGINGS SO THAT HE MAY LEAVE & "JUST GO BACK TO [facility]." DR MARTINES HAS BEEN NOTIFIED & HAS COME TO THE PT's ROOM TO PLACE HIM ON AN INVOLUNTARY HOLD. THE PT IS AGAIN INCREASINGLY ANXIOUS & UPSET, HE HAS LOCKED HIMSELF IN THE BATHROOM BRIEFLY. BATHROOM UNLOCKED W/ MASTER [place] & THE PT CONTINUES TO SIT IN THE BATHROOM W/ THE DOOR OPEN, VERBALIZING UNDERSTANDING THAT IT CANNOT BE CLOSED. PAPERWORK TUBED TO ED & THIS RN HAS READ THE PT HIS CIVIL RIGHTS. PT REMAINS ON RA, O2 SATS > 95%. NO TELE MONITOR IN PLACE R/T MEDICAL STATUS. PT TOLERATING PO INTAKE WELL W/ NO FURTHER C/O NAUSEA. VOIDS URINE W/O DIFFICULTY. SKIN OVERALL INTACT, PT REPOSITIONS SELF W/O DIFFICULTY. WILL CONTINUE TO MONITOR & REPORT OFF TO ONCOMING RN.
[2022-07-04 19:04] LABS: Influenza A, PCR NEGATIVE (NEGATIVE); Influenza B, PCR NEGATIVE (NEGATIVE); Resp Syncytial Virus, PCR NEGATIVE (NEGATIVE); SARS-Cov-2 (COVID-19) PCR, MMC NEGATIVE (NEGATIVE)
--- NOTE | 2022-07-04 23:25 | NUR ---
CARE ASSUMPTION: ASSUMED CARE AT BEGINNING OF SHIFT. PATIENT IN BED STATES HE DOESN'T FEEL WELL - ENDORSES HEADACHE AND NAUSEA, AND COMPLAINS OF CONSTIPATION. PATIENT IS SWEATY, CIWA 14. PATIENT BECOMES AGITATED TALKING ON PERSONAL CELL PHONE WHILE THIS RN WAS COLLECTING MEDICATION FOR HIM. MEDICATED PER EMAR, EDUCATED PATIENT WILL STAY THE NIGHT PER 2-MD HOLD, AND COLLECTED CELL PHONE TO PUT WITH OTHER PERSONAL BELONGINGS. PATIENT STATES HE WILL NOT TRANSFER TO [place]. THIS RN NOTED IV WAS MISSING AND PATIENT STATES HE PULLED BECAUSE "I WAS GOING TO LEAVE." BED LOW WITH CALL LIGHT IN REACH. SITTER IN DOORWAY. PATIENT CURRENTLY ASLEEP.
--- NOTE | 2022-07-05 05:25 | NUR ---
SHIFT SUMMARY: PATIENT AGITATED AND THREATENING TO LEAVE AT BEGINNING OF SHIFT. EDUCATED ON 2 MD HOLD. MEDICATED PER EMAR. PATIENT STILL ASLEEP AT TIME OF NOTE. BED LOW WITH SITTER IN PLACE. NO ADVERSE EVENTS THIS SHIFT TO TIME OF NOTE. CALL LIGHT IN REACH.
--- NOTE | 2022-07-05 08:17 | NUR ---
NURSING PCU DAYSHIFT: Assumed care of pt at approx 0700. A/O, mildly anxious, flat affect at times. SI assessment completed, denies active plan. High Risk SI w/1:1 sitter at bedside. CIWA completed, mild EDMONDS and claminess, otherwise minimal WD symptoms noted. Skin intact w/no breakdown. No tele in place, HRR, HR upper 50's, no c/o CP/pressure, SBP 106, no noted edema. L/S cta t/o, O2 sat 100% on RA, denies dyspnea, no noted cough. Abd firm, mild tenderness w/palp, BT+, voiding w/o difficulty per pt. No PIV in place. No s/s of acute distress at this time. Seen by PMD, discussed transfer plan to inpatient psych facility w/secure transport scheduled at 10:00. 2MD hold remains in place, plan discussed w/pt who has been cooperative though not agreeable to inpatient facility placement. Call light in reach, cont to monitor for any changes.
--- NOTE | 2022-07-05 10:03 | NUR ---
NURSING PCU DISCHARGE SUMMARY: No significant changes noted t/o the a.m. Seen by PMD, no new d/o received. Secure transport at bedside at 0945 for transport to [facility]. Librium and ativan administered prior to transport, security at bedside to assist. Escorted from unit via w/c at approx 0955. Pt was cooperative and agreeable to transport, no s/s of acute distress at time of discharge from unit.
== END 2022-07-05 09:55 ==
LOC: ER 11:08 → PCU 11:09 → EOR 11:09 → PCU 07-02 20:48
PROVIDERS: Family Medicine; Physician Assistant; ADMIT Internal Medicine
DX: F10.239 Alcohol dependence with withdrawal, unspecified (principal); T40.412A Poisoning by fentanyl or fentanyl analogs, intentional self-harm, initial encounter; F15.10 Other stimulant abuse, uncomplicated; F17.210 Nicotine dependence, cigarettes, uncomplicated; F33.2 Major depressive disorder, recurrent severe without psychotic features; F41.1 Generalized anxiety disorder; F43.10 Post-traumatic stress disorder, unspecified; F90.9 Attention-deficit hyperactivity disorder, unspecified type; Z20.822 Contact with and (suspected) exposure to COVID-19; Z88.0 Allergy status to penicillin
CPT/HCPCS: 0241U; 36415; 80048; 80053; 81001; 85025; 93005; 93010; 99285-25; A9270; G0378; G0480; J1650; J2405; J3411; J3480; J7030; J7050; Q3014

== ENCOUNTER 2024-01-21 01:37 | Observation (INO) | payer OTHER ==
[~2024-01-21] VITALS: Ht 180.3 cm; Wt 72.6 kg
[2024-01-21 02:17] LABS: BASOPHILS ABSOLUTE AUTO 0.04 K/mm3 (0.00-0.23); BASOPHILS PERCENT AUTO 0 % (0-2); EOSINOPHILS ABSOLUTE AUTO 0.05 K/mm3 (0.00-0.68); EOSINOPHILS PERCENT AUTO 0 % (0-6); Hematocrit 46.3 % (37.0-53.0); Hemoglobin 16.1 g/dL (13.5-17.5); IMMATURE GRAN ABSOLUTE AUTO 0.02 K/mm3 (0.00-0.10); IMMATURE GRAN PERCENT AUTO 0 % (0-1); LYMPHOCYTES ABSOLUTE AUTO 3.14 K/mm3 (0.84-5.20); LYMPHOCYTES PERCENT AUTO 27 % (21-46); MONOCYTES ABSOLUTE AUTO 0.92 K/mm3 (0.16-1.47); MONOCYTES PERCENT AUTO 8 % (4-13); Mean Corpuscular HGB 30.8 pg (26.0-34.0); Mean Corpuscular HGB Conc 34.8 g/dL (31.5-36.5); Mean Corpuscular Volume 89 fL (80-100); Mean Platelet Volume 10.5 fL (9.1-12.4); NEUTROPHILS ABSOLUTE AUTO 7.57 K/mm3 (1.96-9.15); NEUTROPHILS PERCENT AUTO 65 % (41-73); Platelet Count 263 K/mm3 (150-400); RDW Coefficient Variation 11.9 % (11.7-14.2); Red Blood Cell Count 5.23 M/mm3 (4.30-5.90); White Blood Cell Count 11.74 K/mm3 (4.00-11.30)
[2024-01-21 02:36] LABS: Alanine Aminotransfer (ALT/SGP 24 U/L (12-78); Albumin, Blood 4.5 g/dL (3.4-5.0); Albumin/Globulin Ratio 1.6 (0.8-1.8); Alk Phos 54 U/L (50-136); Anion Gap 8 mmol/L (3-11); Aspartate Aminotrans (AST/SGOT 22 U/L (12-37); Bilirubin, Total 1.8 mg/dL (0.1-1.0); Blood Urea Nitrogen 6 mg/dL (8-24); Bun/Creatinine Ratio 9.1 (12.0-20.0); CO2, Blood 23 mmol/L (21-32); Calcium, Blood 9.6 mg/dL (8.5-10.1); Chloride, Blood 112 mmol/L (98-108); Creatinine, Blood 0.66 mg/dL (0.60-1.20); Ethanol (Alcohol), Blood, Med <3 mg/dL; Globulin, Blood 2.9 g/dL (2.2-4.0); Glomerular Filtration Rate 129 (60-); Glucose, Blood 139 mg/dL (70-99); Potassium, Blood 3.8 mmol/L (3.5-5.5); Sodium, Blood 139 mmol/L (136-145); Total Protein, Blood 7.4 g/dL (6.4-8.2)
[2024-01-21] MEDS ORDERED: LORazepam 2 MG/ML 1ML Injection IM ONE (03:35)
[2024-01-21] MEDS ORDERED: Droperidol 5 mg/2 ml Vial IM ONE (03:35)
[2024-01-21 03:48] LABS: Salicylate <1.7 mg/dL (2.8-20.0)
[2024-01-21 03:50] LABS: Acetaminophen, Random <2.0 ug/mL (10.0-30.0)
[2024-01-21 10:25] LABS: U Amphetamine Screen Not Detected; U Barbituate Screen Not Detected; U Benzodiazapine Screen DETECTED; U Buprenorphine Screen Not Detected; U Cannabinoids Screen DETECTED; U Cocaine Screen Not Detected; U Methadone Screen Not Detected; U Methamphetamine Screen Not Detected; U Opiates Screen Not Detected; U Oxycodone Screen Not Detected; U Phencyclidine Screen Not Detected
[2024-01-21 11:54] VITALS: BP 114/57
[2024-01-21 12:31] LABS: Influenza A, PCR NEGATIVE (NEGATIVE); Influenza B, PCR NEGATIVE (NEGATIVE); Resp Syncytial Virus, PCR NEGATIVE (NEGATIVE); SARS-Cov-2 (COVID-19) PCR, MMC NEGATIVE (NEGATIVE)
[2024-01-25] MEDS ORDERED: NICO2 PO (11:12)
[2024-01-25] MEDS ORDERED: OLAN10A MM (11:12)
== END 2024-01-21 13:19 ==
LOC: ER 01:37 → EOR 01:38
PROVIDERS: ADMIT Student in an Organized Health Care Education/Training Program
DX: F31.12 Bipolar disorder, current episode manic without psychotic features, moderate (principal); R45.851 Suicidal ideations; F17.210 Nicotine dependence, cigarettes, uncomplicated; Z88.0 Allergy status to penicillin; Z79.899 Other long term (current) drug therapy
CPT/HCPCS: 0241U; 80053; 85025; 93005; 93010; 99285-25; G0378; G0480; J1790; J2060

== ENCOUNTER 2024-01-21 09:30 | Inpatient (IN) | payer OTHER ==
[2024-01-21] MEDS ORDERED: DiphenhydrAMINE HCl 50 MG Cap PO PRN ×3 (12:10→12:20)
[2024-01-21] MEDS ORDERED: LORazepam 2 MG Tab PO PRN ×5 (12:10→12:15)
[2024-01-21] MEDS ORDERED: Haloperidol 5 MG Tab PO PRN ×3 (12:10)
[2024-01-21] MEDS ORDERED: QUEtiapine Fumarate 25 MG Tab PO PRN (12:15)
[2024-01-21] MEDS ORDERED: OLANZapine ODT 10 MG Tab MM PRN (12:15)
[2024-01-21] MEDS ORDERED: OLANZapine 10 MG Vial IM PRN ×2 (12:15→12:20)
[2024-01-21] MEDS ORDERED: Melatonin 3 MG Tab PO PRN (12:15)
[2024-01-21] MEDS ORDERED: RisperiDONE 1 MG Tab PO PRN (12:15)
[2024-01-21 14:26] VITALS: BP 117/74
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
[2024-01-21] MEDS ORDERED: ChlordiazePOXIDE 25 MG Cap PO SCH (18:00)
[2024-01-21 19:38] VITALS: BP 114/83
[2024-01-21] MEDS ORDERED: OLANZapine ODT 10 MG Tab MM SCH (21:00)
[2024-01-22 08:05] VITALS: BP 127/84
--- NOTE | 2024-01-22 09:36 | NUR ---
PT ASLEEP ALL THIS MORNING. AWAKENED TO TAKE MED. HE SAID HE WILL GET UP IN AWHILE AND ALSO SHOWER STATES HE RREALLY TIRED AND SLEEPY. WILL CONTINE TO MONITOR.
--- NOTE | 2024-01-22 12:32 | NUR ---
PT AWAKE AND UP WATCHING TV AFTER LUNCH AND INTERVIEW. STATES THAT HE HAS NO SUPPORT SYSTEM BUT HAS PLACES HE CAN GO TO ON DISCHARGE. HE BECAME TEARY WHEN INTERVIEWIG. WAS SOFT SPOKEN AND I HAD TO ASK HIM TO REPEAT HIMSELF. WILL CONTINUE TO MONITOR.
[2024-01-22] MEDS ORDERED: ChlordiazePOXIDE 25 MG Cap PO SCH (16:00)
--- NOTE | 2024-01-22 23:11 | NUR ---
PT HAS BEEN SLEEPING ALL SHIFT SO FAR. WOKE UP FOR A MINUTE WHILE I WAS CHECKING ON HIM. REQUESTED TO HAVE HIS MEDICATION LATER WHEN I BRING HIS LIBRIUM. WILL CONT TO MONITOR AND PROVIDE CARE.
[2024-01-23 00:49] VITALS: BP 118/83
--- NOTE | 2024-01-23 00:55 | NUR ---
PT JUST WOKE UP AND TOOK HIS 2100 AND 0000 MEDS. DENIES ANY SI, HI OR A/V HALLUCINATIONS. AT THIS TIME HE IS UP LISTENING TO MUSIC ON HEADPHONES IN HALLWAY AND WALKING UP AND DOWN LEE. WILL CONTINUE TO MONITOR AND PROVIDE CARE.
--- NOTE | 2024-01-23 03:58 | NUR ---
SHIFT SUMMARY PT HAS BEEN SLEEPING T/O SHIFT EXCEPT FOR HAVING A SNACK WITH HIS MEDS. A&O X 4. LS CLEAR T/O. HRR. BT POSITIVE X 4. DENIES PAIN OR OTHER COMPLAINTS. DENIES SI, A/V HALLUCINATIONS OR OTHER COMPLAINTS. REPORTS HE WANTS TO GET BETTER AND BE ABLE TO GO HOME. WILL CONT TO MONITOR AND REPORT CHANGES TO PSYCHIATRIST IF NEEDED.
[2024-01-23] MEDS ORDERED: Nicotine 21 MG PATCH TOP SCH (09:00)
[2024-01-23 10:10] VITALS: BP 135/85
--- NOTE | 2024-01-23 11:31 | NUR ---
PT DENIES PAIN. VOICES STILL PREENT AT TIMES. PT STATES HE IS FEELING BETTER AND WOULD LIKE TO STOP THE LIBRIUM MEDICATION. DID LET THE DR KNOW AND HE WILL DECREASE TH ELIM IRA TO WEAN HIM OFF OF IT. ENCOUARGED TO SHOWER TODAY AND INTERACT WITH GROUPS. HE DID GO TO THE FIRST GROUP OF THE DAY SO FAR.
--- NOTE | 2024-01-23 15:24 | NUR ---
EDIT* PRESSURE ULCER ERRONEOUSLY REPORTED ON ADMIT. PT DOES NOT HAVE PI.
[2024-01-23 19:51] VITALS: BP 120/66
--- NOTE | 2024-01-24 05:22 | NUR ---
SHIFT SUMMARY Patient is calm, cooperative, eye contact is intermittent. Pt presents as depressed with constricted affect. He denies current SI, HI, AVH. Pt rates his current depression as 5/10W and anxiety as 4/10W. Pt reports current pain in his right had 7/10W, which radiates up his arm. Pt has a large, swollen are on the back of his hand that he says resulted from him hitting a wall. Patient refused his HS olanzapine. Pt appeared to sleep or rest quietly most of the night.
[2024-01-24] MEDS ORDERED: ChlordiazePOXIDE 25 MG Cap PO SCH ×2 (09:00)
--- NOTE | 2024-01-24 10:33 | NUR ---
ASSUMMED PT CARE @0715. PT AWAKE, ALERT, AND ORIENTATED TO PERSON AND PLACE. 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 TALKED TO PATIENT ABOUT PROGRESS HE IS MAKING AND BENEFIT OF MEDICATION AND HE STILL REFUSES. IZZY PCI AWARE AND REPORTS SHE SPOKE WITH HIM YESTERDAY AND WILL AGIN TODAY. WILL NOTIFY DR. PERERA AT TEAM MEETING
[2024-01-24] MEDS ORDERED: OLANZapine 10 MG Tab PO ONE (11:55)
--- NOTE | 2024-01-24 12:41 | NUR ---
CAROL contacted [facility] at 1237pm and spoke with Karina, in order to support pt in receiving psychiatric services. Karina assted CAROL in scheduling psychiatric services for 01/29/2024 at 10:00am.
[2024-01-24] MEDS ORDERED: Nicotine Polacrilex 2 MG Gum PO PRN (12:55)
--- NOTE | 2024-01-24 17:32 | NUR ---
PT AWAKE ALERT AND ORIENTATED TO PERSON PLACE AND SITUATION. HE DENIES SI, VH, HI. HE IS RESPONDING TO INTERNAL STIMULI. PT BELIEVES THAT HE WILL BE IN SOME LEGAL TROUBLE WHEN RELEASED BUT WILL NOT ELABORATE. EYE CONTACT IS APPROPRIATE. MOOD IS GAURDED. PT IS REFUSING MEDICATIONS. HE DENIES ANY NEEDS AT THIS TIME.
[2024-01-24 20:35] VITALS: BP 142/91
--- NOTE | 2024-01-24 20:56 | NUR ---
PT SITTING IN TV ROOM WITH OTHERS WATCHING TV. PT REFUSED MEDICATIONS THIS SHIFT FOR THIS RN.
--- NOTE | 2024-01-25 05:23 | NUR ---
SHIFT SUMMARY PT HAS BEEN RESTING QUIETLY WITHOUT ANY C/O PAIN OR DISCOMFORT MOST OF SHIFT. DENIES SI/HI OR AUDIO, VISUAL OR TACTILE HALLUCINATIONS. HE REFUSED HIS HS OLANZAPINE.
--- NOTE | 2024-01-25 08:22 | NUR ---
PT UP EARLY AND SHOWERED, STATES HE SLEPT WELL. PT DENIES SI/HI WELL AH/VH/TH, PT STATES HE ONLY HEARS HIS "INNER VOICE," AND WHILE SPEAKING WITH HIM HE IS ALSO INTERMITTENTLY SPEAKING TO HIS "INNER VOICE," WHERE HE WILL MUMBLE, GESTURE, AND IS EXPRESSIVE WITH FACE. PT REPORTS HE FEELS MUCH BETTER, HE IS "HOPEFUL," AND STATES HE WANTS TO GO TO [place] TO GET A JOB CRABBING. PT REFUSING MEDICATIONS, STATES "I JUST WANT TO BE MYSELF," DESPITE ENCOURAGING AND REASSURING PT HE STILL DECLINES MEDICATION, HE IS WANTING DC TODAY.
--- NOTE | 2024-01-25 09:53 | NUR ---
PT CONTINUES TO REFUSE MEDICATIONS THIS MORNING, STATES HE WOULD LIKE TO SEE THE DR. HE IS ASKING FOR DISCHARGE
[2024-01-25 10:08] VITALS: BP 154/92
--- NOTE | 2024-01-25 10:23 | NUR ---
DROP HOLD COMPLETED BY PROVIDER, ORIGINAL TO [facility] AND COPY IN PT CHART
--- NOTE | 2024-01-25 10:47 | NUR ---
PT REQUESTS AND IS GIVEN NICORETTE GUM PER ORDERS, PT STILL DENIES NEED FOR MORNING MEDICATIONS, BUT STATES HE WILL ACCEPT RX AT [place], STATES HE USES [facility]
[2024-01-25] MEDS ORDERED: NICO2 PO ×2 (11:12)
[2024-01-25] MEDS ORDERED: OLAN10A MM ×2 (11:12)
--- NOTE | 2024-01-25 11:28 | NUR ---
BELONGINGS RECCONCILED WITH RIYA RUBIO AND PT, NO DISCREPANCIES REPORTED. PT ARRANGING FOR HIS OWN TRANSPORT HOME, PT PROVIDED DC INSTRUCTIONS, MEDICATIONS FAXED TO PHARMACY, PT PROVIDED OUTPATIENT APPT LIST, PT STATES UNDERSTANDING.
== END 2024-01-25 11:23 | disposition home or self-care (01) | DRG 885 ==
LOC: BHU 09:30
PROVIDERS: ADMIT Student in an Organized Health Care Education/Training Program
DX: F31.12 Bipolar disorder, current episode manic without psychotic features, moderate (principal); F29 Unspecified psychosis not due to a substance or known physiological condition; F15.90 Other stimulant use, unspecified, uncomplicated; Z88.0 Allergy status to penicillin; Z79.899 Other long term (current) drug therapy
CPT/HCPCS: A9270